=== PATIENT | male | born 1975 | race Caucasian/White ===

== ENCOUNTER 2021-01-26 12:57 | Emergency (ER) | payer OTHER ==
[2021-01-26 13:43] VITALS: BP 102/63; PULSE 85; TEMP 98.4; BMI 24.0
[2021-01-26 15:21] LABS: BASO % 0.7 % (0-2.0); EOS % 3.9 % (0-4.5); HEMATOCRIT 45.5 % (35.4-49); HEMOGLOBIN 14.9 GM/dL (11.7-16.9); LYMPH % 28.6 % (8-40); MCH 25.7 pg (25.7-33.7); MCHC 32.8 g/dl (32.0-35.9); MEAN CELL VOLUME 78.2 fl (80-96); MEAN PLT VOLUME 7.9 fl (7.5-11.1); MONO % 9.5 % (3.8-10.2); NEUT % 57.3 % (42.8-82.8); PLATELET COUNT 238 10^3/uL (134-434); RBC 5.82 M/mm3 (4.00-5.60); RDW 15.2 % (11.9-15.9); WHITE BLOOD COUNT 5.3 K/mm3 (4.0-10.0)
[2021-01-26 15:44] LABS: CHLORIDE 107 mmol/L (98-107); SODIUM 143 mmol/L (136-145)
[2021-01-26 15:46] LABS: ANION GAP 7 MMOL/L (8-16); CALCIUM 9.5 mg/dL (8.5-10.1); CO2 29 mmol/L (21-32)
[2021-01-26 15:47] LABS: ALBUMIN 3.4 g/dl (3.4-5.0); BLOOD UREA NITROGEN 14.4 mg/dL (7-18); GLUCOSE,RANDOM 112 mg/dL (74-106)
[2021-01-26 15:50] LABS: CREATININE 0.7 mg/dL (0.55-1.3); SGOT/AST 19 U/L (15-37); SGPT/ALT 41 U/L (13-61)
[2021-01-26 15:51] LABS: BILIRUBIN,TOTAL 0.4 mg/dL (0.2-1); TOT PROT 7.4 g/dl (6.4-8.2)
[2021-01-26 15:52] LABS: ALK PHOS 87 U/L (45-117)
[2021-01-26 17:52] LABS: CHLORIDE 108 mmol/L (98-107); SODIUM 141 mmol/L (136-145)
[2021-01-26 17:54] LABS: ANION GAP 9 MMOL/L (8-16); CO2 24 mmol/L (21-32)
== END 2021-01-26 18:15 | disposition home or self-care (01) ==
LOC: JER 12:57
DX: R94.31 Abnormal electrocardiogram [ECG] [EKG] (principal)
CPT/HCPCS: 36415; 71046-TC-FY; 80051; 80053; 82550; 84439; 84443; 84484; 85025; 93005; 93010; 99285-25